=== PATIENT | male | born 1990 | race Caucasian/White ===

== ENCOUNTER 2017-01-15 23:39 | Emergency (ER) | payer SELFPAY ==
[2017-01-16 00:04] VITALS: RESP 18; TEMP 98.2
--- NOTE | 2017-01-16 00:09 | ED PDOC ---
Arrival/HPI - General Chief Complaint: Male Genitourinary Time Seen by Provider: 01/15/17 23:49 Historian: Patient - History of Present Illness Narrative History of Present Illness (Text): 01/16/17 00:09 Madhav Obregon is a 26 year old male who presents to the Emergency department complaining of occasional yellowish penile discharge. Patient states he has been previously diagnosed with STD, namely gonorrhea, for which he has has been treated and received courses or antibiotics prior to this. Patient is sexually active. Patient denies any history of fever, chills, abdominal pain, nausea, vomiting, diarrhea, back pain, rash, or any other complaints. Symptom Onset: Gradual Symptom Course: Unchanged Activities at Onset: Rest, Light Context: Home Past Medical History - Provider Review Nursing Documentation Reviewed: Yes - Psychiatric Hx Substance Use: No Family/Social History - Physician Review Nursing Documentation Reviewed: Yes Family/Social History: Unknown Family HX Smoking Status: Never Smoked Hx Alcohol Use: No Hx Substance Use: No Allergies/Home Meds Allergies/Adverse Reactions: Allergies No Known Allergies Allergy (Verified 01/16/17 00:00) Review of Systems - Physician Review All systems were reviewed & negative as marked: Yes - Review of Systems Constitutional: Normal Eyes: Normal ENT: Normal Respiratory: Normal. absent: SOB, Cough Cardiovascular: Normal. absent: Chest Pain Gastrointestinal: Normal. absent: Abdominal Pain, Diarrhea, Nausea, Vomiting Genitourinary Male: Other (+penile discharge) Musculoskeletal: Normal. absent: Back Pain, Neck Pain Skin: Normal. absent: Rash Neurological: Normal. absent: Headache, Dizziness Endocrine: Normal Hemo/Lymphatic: Normal Psychiatric: Normal Physical Exam Vital Signs Reviewed: Yes Vital Signs Temp Pulse Resp BP Pulse Ox 01/16/17 00:00 98.2 F 62 18 123/87 99 Temperature: Afebrile Blood Pressure: Normal Pulse: Regular Respiratory Rate: Normal Appearance: Positive for: Well-Appearing, Non-Toxic, Comfortable Pain Distress: None Mental Status: Positive for: Alert and Oriented X 3 - Systems Exam Head: Present: Atraumatic, Normocephalic Pupils: Present: PERRL Extroacular Muscles: Present: EOMI Conjunctiva: Present: Normal Mouth: Present: Moist Mucous Membranes Neck: Present: Normal Range of Motion Respiratory/Chest: Present: Clear to Auscultation, Good Air Exchange. No: Respiratory Distress, Accessory Muscle Use Cardiovascular: Present: Regular Rate and Rhythm, Normal S1, S2. No: Murmurs Abdomen: Present: Normal Bowel Sounds. No: Tenderness, Distention, Peritoneal Signs Rectal: No: Other (No rectal lesions) Genitourinary Male: Present: Normal External Genitalia. No: Lesions, Penile Discharge, Testicle Tenderness, Penile Swelling, Masses, Hernias, Testicle Swelling Back: Present: Normal Inspection Upper Extremity: Present: Normal Inspection. No: Cyanosis, Edema Lower Extremity: Present: Normal Inspection. No: Edema Neurological: Present: GCS=15, CN II-XII Intact, Speech Normal Skin: Present: Warm, Dry, Normal Color. No: Rashes Lymphatic: No: Inguinal Adenopathy Psychiatric: Present: Alert, Oriented x 3, Normal Insight, Normal Concentration Medical Decision Making ED Course and Treatment: 01/16/17 00:09 Impression: 26 year old male complaining of occasional yellowish penile discharge. Plan: -- Chlamydia/GC RNA -- UA -- Reassess and disposition Progress Notes: 01/16/17 02:05 On reevaluation the patient feels better and is in no acute distress. I have discussed the results and plan with the patient, who expresses understanding. Patient given the opportunity to ask question, all questions were answered and there is agreement with the plan to discharge the patient home. Patient is stable for discharge. Patient was instructed to follow up with physician/clinic in 1-2 days or return if symptoms persist/worsen or new concerning symptoms arise. - Lab Interpretations Lab Results: Lab Results 01/16/17 00:22: Urine Color Yellow, Urine Appearance Clear, Urine pH 6.5, Ur Specific [place] 1.025, Urine Protein Negative, Urine Glucose (UA) Negative, Urine Ketones Trace H, Urine Blood Negative, Urine Nitrate Negative, Urine Bilirubin Negative, Urine Urobilinogen 0.2, Ur Leukocyte Esterase Negative I have reviewed the lab results: Yes - Medication Orders Current Medication Orders: Discontinued Medications Azithromycin (Zithromax) 1,000 mg PO ONCE STA PRN Reason: Protocol Stop: 01/16/17 02:02 Ceftriaxone Sodium (Rocephin) 250 mg IM STAT STA PRN Reason: Protocol Stop: 01/16/17 02:02 - Scribe Statement The provider has reviewed the documentation as recorded by the Felicia Steve Provider Scribe Attestation: All medical record entries made by the Scribe were at my direction and personally dictated by me. I have reviewed the chart and agree that the record accurately reflects my personal performance of the history, physical exam, medical decision making, and the department course for this patient. I have also personally directed, reviewed, and agree with the discharge instructions and disposition. Disposition/Present on Arrival - Present on Arrival Any Indicators Present on Arrival: No History of DVT/PE: No History of Uncontrolled Diabetes: No Urinary Catheter: No History of Decub. Ulcer: No History Surgical Site Infection Following: None - Disposition Have Diagnosis and Disposition been Completed?: Yes Diagnosis: Urethritis Disposition: HOME/ ROUTINE Disposition Time: 02:03 Patient Plan: Discharge Patient Problems: Current Active Problems Problem Status Onset Urethritis Acute Condition: STABLE Discharge Instructions (ExitCare): Nonspecific Urethritis in Men (ED) Additional Instructions: Drink plenty of liquids/no sexual intercourse/follow up with your doctor this week Referrals: Sidney Nguyen MD [Staff Provider] - Follow up with primary
[2017-01-16 00:41] LABS: PH,URINE 6.5 (4.7-8.0); URINE BILIRUBIN NEGATIVE (NEGATIVE); URINE BLOOD NEGATIVE (NEGATIVE); URINE GLUCOSE (UA) NEGATIVE (NEGATIVE); URINE LEUKOCYTE ESTERASE NEGATIVE Leu/uL (NEGATIVE); URINE NITRATE NEGATIVE (NEGATIVE); URINE PROTEIN NEGATIVE mg/dL (<30 mg/dL); URINE UROBILINOGEN 0.2 E.U./dL (<1 E.U./dL)
[2017-01-16 00:54] LABS: URINE APPEARANCE CLEAR (CLEAR); URINE COLOR YELLOW (YELLOW)
[2017-01-16] MEDS ORDERED: cefTRIAXone (Rocephin) 250 mg Inj IM STA (02:01)
[2017-01-16 02:38] VITALS: BP 125/69; PULSE 65; O2SAT 100
== END 2017-01-16 02:40 | disposition home or self-care (01) ==
LOC: ED 23:39 → MERGE 23:39 → ED 01-16 02:40
DX: N34.2 Other urethritis (principal)

== ENCOUNTER 2017-01-19 01:30 | Emergency (ER) | payer SELFPAY ==
[2017-01-19 01:30] VITALS: BMI 26.6
[2017-01-19 01:36] VITALS: BP 131/76; PULSE 71; RESP 18; TEMP 98.5; O2SAT 98
[2017-01-19] MEDS ORDERED: cefTRIAXone (Rocephin) 250 mg Inj IM STA (01:42)
--- NOTE | 2017-01-19 01:43 | ED PDOC ---
Arrival/HPI - General Chief Complaint: Male Genitourinary Time Seen by Provider: 01/19/17 01:32 Historian: Patient - History of Present Illness Narrative History of Present Illness (Text): 01/19/17 01:43 Madhav Obregon is a 26 year old male who presents to the Emergency department presents for STD prophylaxis. Patient was seen in the Emergency department on for occasional penile discharge and had GC/Chalmydia RNA labs performed. Patient offered STD prophylaxis at that time but refused. Patient returns now requesting STD prophylaxis. Patient has a history of STDs in the past and sexually active. Patient denies any fever, chills, nausea, vomiting, diarrhea, urinary symptoms, back pain, or any other complaints. Symptom Onset: Gradual Symptom Course: Unchanged Activities at Onset: Rest, Light Context: Home Past Medical History - Provider Review Nursing Documentation Reviewed: Yes - Infectious Disease Hx of Infectious Diseases: None - Cardiac Hx Hypertension: No - Pulmonary Hx Tuberculosis: No - Neurological Hx Seizures: No - Hematological/Oncological Hx Cancer: No - Musculoskeletal/Rheumatological Hx Musculoskeletal Disorders: Yes - Genitourinary/Gynecological Hx Sexually Transmitted Diseases: Yes - Psychiatric Hx Substance Use: No - Surgical History Other/Comment: knee surgery 4 years ago - Anesthesia Hx Anesthesia: Yes Hx Anesthesia Reactions: No - Suicidal Assessment Feels Threatened In Home Enviroment: No Family/Social History - Physician Review Nursing Documentation Reviewed: Yes Family/Social History: Unknown Family HX Smoking Status: Never Smoked Hx Alcohol Use: No Hx Substance Use: No Substance used: marijuana Allergies/Home Meds Allergies/Adverse Reactions: Allergies No Known Allergies Allergy (Verified 01/19/17 01:36) Home Medications: Home Meds Medication Instructions Recorded Confirmed No Known Home Med 01/19/17 01/19/17 Review of Systems - Physician Review All systems were reviewed & negative as marked: Yes - Review of Systems Constitutional: Normal. absent: Fevers Eyes: Normal ENT: Normal Respiratory: Normal. absent: SOB, Cough Cardiovascular: Normal. absent: Chest Pain Gastrointestinal: Normal. absent: Abdominal Pain, Diarrhea, Nausea, Vomiting Genitourinary Male: Normal. absent: Dysuria, Frequency, Hematuria, Urinary Output Changes Musculoskeletal: Normal. absent: Back Pain, Neck Pain Skin: Normal. absent: Rash Neurological: Normal. absent: Headache, Dizziness Endocrine: Normal Hemo/Lymphatic: Normal Psychiatric: Normal Physical Exam Vital Signs Reviewed: Yes Vital Signs Temp Pulse Resp BP Pulse Ox 01/19/17 01:33 98.5 F 71 18 131/76 98 Temperature: Afebrile Blood Pressure: Normal Pulse: Regular Respiratory Rate: Normal Appearance: Positive for: Well-Appearing, Non-Toxic, Comfortable Pain Distress: None Mental Status: Positive for: Alert and Oriented X 3 - Systems Exam Head: Present: Atraumatic, Normocephalic Pupils: Present: PERRL Extroacular Muscles: Present: EOMI Conjunctiva: Present: Normal Mouth: Present: Moist Mucous Membranes Neck: Present: Normal Range of Motion Respiratory/Chest: Present: Clear to Auscultation, Good Air Exchange. No: Respiratory Distress, Accessory Muscle Use Cardiovascular: Present: Regular Rate and Rhythm, Normal S1, S2. No: Murmurs Abdomen: Present: Normal Bowel Sounds. No: Tenderness, Distention, Peritoneal Signs Back: Present: Normal Inspection Upper Extremity: Present: Normal Inspection. No: Cyanosis, Edema Lower Extremity: Present: Normal Inspection. No: Edema Neurological: Present: GCS=15, CN II-XII Intact, Speech Normal Skin: Present: Warm, Dry, Normal Color. No: Rashes Psychiatric: Present: Alert, Oriented x 3, Normal Insight, Normal Concentration Medical Decision Making ED Course and Treatment: 01/19/17 01:43 Impression: 26 year old male requesting STD prophylaxis. Differential Diagnosis included but are not limited to: STD Plan: -- Rocephin -- Reassess and disposition Prior Visits: Notes and results from previous visits were reviewed. Patient was seen in the Emergency department on 01/16/2017 for occasional penile discharge and had GC/Chalmydia RNA labs performed. Progress Notes: Patient offered STD prophylaxis during visit but refused. Patient was informed that GC/Chlamydia was negative. Patient still requesting STD prophylaxis. Rocephin ordered. - Medication Orders Current Medication Orders: Discontinued Medications Ceftriaxone Sodium (Rocephin) 250 mg IM STAT STA PRN Reason: Protocol Stop: 01/19/17 01:43 Last Admin: 01/19/17 01:49 Dose: 250 mg - Scribe Statement The provider has reviewed the documentation as recorded by the Felicia Moore training under Roseanne Steve Provider Attestation: All medical record entries made by the Felicia were at my direction and personally dictated by me. I have reviewed the chart and agree that the record accurately reflects my personal performance of the history, physical exam, medical decision making, and the department course for this patient. I have also personally directed, reviewed, and agree with the discharge instructions and disposition. Disposition/Present on Arrival - Present on Arrival Any Indicators Present on Arrival: No History of DVT/PE: No History of Uncontrolled Diabetes: No Urinary Catheter: No History of Decub. Ulcer: No History Surgical Site Infection Following: None - Disposition Have Diagnosis and Disposition been Completed?: Yes Diagnosis: Sexually transmitted infectious disease Disposition: HOME/ ROUTINE Disposition Time: 02:00 Condition: GOOD Discharge Instructions (ExitCare): Sexually Transmitted Diseases in Adolescents (ED)
== END 2017-01-19 02:02 | disposition home or self-care (01) ==
LOC: ED 01:30
DX: A64 Unspecified sexually transmitted disease (principal)
CPT/HCPCS: 96372; 99283; J0696